=== PATIENT | male | born 1955 | race Caucasian/White ===

== ENCOUNTER 2019-03-01 14:39 | Emergency (ER) | payer BC ==
[~2019-03-01] VITALS: Ht 177.8 cm; Wt 81.0 kg
[2019-03-01] MEDS ORDERED: glucagon, human recombinant 1mg kit IV ONE (15:55)
[2019-03-01] MEDS ORDERED: normal saline 1000ML IV soln IVB ONE (15:55)
[2019-03-01 16:21] LABS: BASOPHILS # (AUTO) 0.1 X10'3 (0-0.2); BASOPHILS % (AUTO) 0.6 % (0-1); EOSINOPHILS # (AUTO) 0.1 X10'3 (0-0.9); EOSINOPHILS % (AUTO) 0.9 % (0-6); HEMATOCRIT 51.3 % (42.0-52.0); HEMOGLOBIN 17.5 g/dl (14.0-17.9); LYMPHOCYTES # (AUTO) 1.3 X10'3 (1.1-4.8); LYMPHOCYTES % (AUTO) 12.7 % (21-51); MEAN CORPUSCULAR HEMOGLOBIN 31.9 PG (27.0-31.0); MEAN CORPUSCULAR HGB CONC 34.1 g/dL (33.0-36.5); MEAN CORPUSCULAR VOLUME 93.7 FL (78-98); MEAN PLATELET VOLUME 6.7 FL (7.4-10.4); MONOCYTES % (AUTO) 10.1 % (2-12); NEUTROPHILS # (AUTO) 7.6 X10'3 (1.8-7.7); NEUTROPHILS % (AUTO) 75.7 % (42-75); PLATELET COUNT 185 X10'3 (140-440); RED BLOOD COUNT 5.48 X10'6 (4.70-6.10); RED CELL DISTRIBUTION WIDTH 13.8 % (11.5-14.5)
[2019-03-01 16:31] LABS: INR 1.1 INR
[2019-03-01 16:35] LABS: ALANINE AMINOTRANSFERASE 63 U/L (12-78); ALBUMIN 4.5 G/DL (3.4-5.0); ALKALINE PHOSPHATASE 70 IU/L (46-116); ANION GAP 10 (8-16); ASPARTATE AMINO TRANSFERASE 46 U/L (10-37); BILIRUBIN,TOTAL 1.1 MG/DL (0.1-1.0); BLOOD UREA NITROGEN 10 MG/DL (7-18); BUN/CREATININE RATIO 10.3 (5.4-32.0); CHLORIDE 102 MMOL/L (99-107); CREATININE 0.97 MG/DL (0.60-1.10); GLUCOSE 134 MG/DL (70-104); POTASSIUM 4.1 MMOL/L (3.5-5.1); SODIUM 141 MMOL/L (135-145); TOTAL CARBON DIOXIDE 29.1 MMOL/L (24-32); TOTAL PROTEIN 8.8 G/DL (6.4-8.2); eGFR 78 ML/MIN
[2019-03-01] MEDS ORDERED: labetalol 20mg/4ml (5mg/ml) syringe IV ONE (17:25)
[2019-03-01 17:30] VITALS: BP 193/122
[2019-03-01] MEDS ORDERED: fentaNYL/PF 50MCG/1 ML 2ML syringe ONE ×2 (17:33→17:37)
[2019-03-01] MEDS ORDERED: MIDAZolam 5mg/5ml vial ONE (17:34)
[2019-03-01] MEDS ORDERED: LIDOcaine Viscous 15ml cup ONE (17:37)
[2019-03-01 18:30] VITALS: BP 135/86
[2019-03-01 18:40] VITALS: BP 134/87
[2019-03-01 18:50] VITALS: BP 138/92
[2019-03-01 19:00] VITALS: BP 135/91
--- NOTE | 2019-03-01 19:22 | NUR ---
PT BACK FROM GI LAB - S.O AT BEDSIDE AND ABLE TRANSPORT PT BACK HOME WHEN D\C READY. PT IS ALERT AND ORIENTED, DENIES COMPLAINT AT THIS TIME. WILL CONTINUE TO MONITOR.
[2019-03-01] MEDS ORDERED: PANT-47 PO (19:44)
[2019-03-01 20:03] VITALS: BP 155/100
== END 2019-03-01 20:05 | disposition home or self-care (01) ==
LOC: ER 14:40
DX: T18.128A Food in esophagus causing other injury, initial encounter (principal); I10 Essential (primary) hypertension; M10.9 Gout, unspecified; Z79.899 Other long term (current) drug therapy; Y92.89 Other specified places as the place of occurrence of the external cause
CPT/HCPCS: 36415; 43239; 80053; 85025; 85610; 96374; 96375; 99152; 99285; J1610; J2250; J3010; J7030; A4620; J3490

== ENCOUNTER 2020-12-28 10:45 | Outpatient (CLI) | payer MEDICARE, OTHER ==
[~2020-12-28 10:45] MED LIST: PANT-47 PO
[2020-12-28] MEDS ORDERED: iohexol 300mg/ml 100ml inj. ONE (10:59)
== END 2020-12-28 23:59 | disposition home or self-care (01) ==
LOC: 64 CT 10:45
PROVIDERS: ATTEND Family Medicine
DX: K57.30 Diverticulosis of large intestine without perforation or abscess without bleeding (principal); N40.0 Benign prostatic hyperplasia without lower urinary tract symptoms; K76.0 Fatty (change of) liver, not elsewhere classified; M25.78 Osteophyte, vertebrae; I25.10 Atherosclerotic heart disease of native coronary artery without angina pectoris
CPT/HCPCS: 71260; 74177; Q9967

== ENCOUNTER 2022-07-24 08:29 | Outpatient (CLI) | payer BC, MEDICARE, OTHER | END 2022-07-24 23:59 | disposition home or self-care (01) | LOC: RAD 08:29 | PROVIDERS: ATTEND Physician Assistant | DX: K76.0 Fatty (change of) liver, not elsewhere classified (principal); R16.0 Hepatomegaly, not elsewhere classified; R74.8 Abnormal levels of other serum enzymes | CPT/HCPCS: 76700 ==

== ENCOUNTER 2022-10-03 08:40 | Outpatient (CLI) | payer BC, MEDICARE, OTHER | END 2022-10-03 23:59 | disposition home or self-care (01) | LOC: RAD 08:40 | PROVIDERS: ATTEND Student in an Organized Health Care Education/Training Program | DX: C69.31 Malignant neoplasm of right choroid (principal); R16.0 Hepatomegaly, not elsewhere classified; K82.8 Other specified diseases of gallbladder; R18.8 Other ascites | CPT/HCPCS: 76700 ==